=== PATIENT | male | born 2000 ===

== ENCOUNTER 2022-12-03 10:32 | Outpatient (CLI) | payer OTHER, SELFPAY ==
--- NOTE | ~2022-12-03 | MR_ITS ---
EXAMINATION: MR shoulder RT w con DATE: 12/03/2022 12:20 INDICATION: Right shoulder pain and limited range of motion post wrestling injury 4 months prior TECHNIQUE: Magnetic resonance imaging (MRI) of the right shoulder was performed following intra-joi cular gadolinium contrast injection and without intravenous contrast. Details of the glenohumeral kenia nt injection have been dictated separately. Sequences included axial T2-weighted FS FSE, axial T1-we ighted FS FSE, coronal oblique T1-weighted FS FSE, coronal oblique T2-weighted FSE, sagittal T2-weigh sam FS FSE, sagittal T1-weighted FSE, and ABER (abduction external rotation) T1-weighted FS FSE. COMPARISON: None. FINDINGS: Coracoacromial arch: The acromion undersurface is curved in morphology (type II). The coracoacromial ligament is normal. Acromioclavicular joint is normal. Rotator cuff: Mild supraspinatus and infraspinatus tendinopathy with intrasubstance contrast imbibition extending a pproximately 2.5 cm anterior to posterior along the distalmost supraspinatus tendon and conjoined por tion of the supraspinatus and infraspinatus tendons consistent with an articular sided tear. There is however no clearly defined torn and retracted tear margin or measurable tear defect on the T2-weight ed imaging suggesting the extent and degree of contrast signal significant over estimates the size an d depth of the tear. The teres minor and subscapularis tendons are normal. Normal rotator cuff muscle bulk and signal. Biceps tendon, glenoid labrum and glenohumeral cartilage: There is a small partial-thickness tear along the anteroinferior glenoid labrum. Glenohumeral cartila ge is normal. The long head of the biceps tendon is not visualized and may be avulsed and retracted d istal to the intertubercular groove. This could also reflect changes of prior tenotomy in the appropr iate clinical setting. Bones and other: There is mild marrow edema at the posterior superolateral aspect of the humeral head there is a very small concavity suspicious for subacute to chronic very small Hill-Sachs fracture trough. Correlate f or history of prior anterior dislocation. Marrow signal is otherwise normal. No other lesions suspici ous for fracture identified. There are 3 linear tracts of central increased T2 signal and surrounding low signal extending to the humeral head from the cephalad aspect of the intertubercular groove whic h could represent either vascular channels or potentially suture anchor tracks related to a prior bic ipital tenodesis. Correlate with surgical history. IMPRESSION: 1. Likely small articular sided tear as evidenced by by prominent contrast imbibition in the distal 2 cm the supraspinatus tendon and conjoined supraspinatus and infraspinatus tendons without a clearly defined retracted tear margin or measurable tear defect on the T2-weighted imaging. 2. Suggestion of prior anterior glenohumeral dislocation with small tear at the anteroinferior glenoi d and mild edema along a suspected subacute early chronic shallow Hill-Sachs fracture trough at the p osterior superolateral aspect of the humeral head. Correlate with clinical history. 3. Long head of the biceps tendon is not identified and may be avulsed and retracted distally from it s origin anchor. Alternatively this could represent change of prior tenotomy or attempted tenodesis w ith what appear to be potential suture anchor tracks along the cephalad aspect of the intertubercular groove. Correlate with surgical history. Reviewed, dictated and finalized at location [facility]. IMPRESSION: 1. Likely small articular sided tear as evidenced by by prominent contrast imbi bition in the distal 2 cm the supraspinatus tendon and conjoined supraspinatus and infraspinatus tendons with
--- NOTE | ~2022-12-03 | XR_ITS ---
XR fl inj shoulder RT - MR/CT DATE: 12/03/2022 11:51 INDICATION: Right shoulder pain TECHNIQUE: The purpose of the procedure, technique potential competitions were discussed with the pat ient. The patient indicated understanding and gave consent. The skin of the anterior aspect of the right shoulder was reported sterile Betadine solution. Sterile drape was applied. Local anesthetic was administered to the skin and underlying subcutaneous tissues . Using fluoroscopic guidance, a 22-gauge spinal needle was introduced into the glenohumeral joint sp michael. 12 CC of mixed multi-Arnaldo, Omnipaque 350 and lidocaine was injected into the lateral joint, wit h fluoroscopic confirmation of intra-articular position of the contrast material. A single Exposure was made to confirm intra-articular injection. The needle was then withdrawn. The patient wa s very cooperative and tolerated well, without complaint or apparent complication. IMPRESSION: Pre-MRI right shoulder examination intra-articular injection of contrast material with fl uoroscopic guidance Reviewed, dictated and finalized at [facility]. Reviewed, dictated and finalized at location [facility]. IMPRESSION: Pre-MRI right shoulder examination intra-articular injection of con trast material with fluoroscopic guidance
== END 2022-12-03 10:33 ==
PROVIDERS: PCP Orthopaedic Surgery; Visit Provider Orthopaedic Surgery
DX: M25.511 Pain in right shoulder (principal); G89.29 Other chronic pain
CPT/HCPCS: 23350; 73222; 77002; A9577; Q9967